=== PATIENT | female | born 1965 | race Caucasian/White ===

== ENCOUNTER → 2017-04-05 | Outpatient (CLI) | payer BC ==
--- NOTE | 2017-04-05 15:54 | XR ---
EXAMINATION TYPE: XR shoulder complete RT DATE OF EXAM: 04/05/2017 COMPARISON: NONE HISTORY: Pain TECHNIQUE: Two views are submitted. FINDINGS: The osseous structures are intact. There is no acute fracture or dislocation. Arthropathy of the AC joint. IMPRESSION: 1. AC joint arthropathy.
--- NOTE | 2017-04-05 15:55 | XR ---
EXAMINATION TYPE: XR hand limited RT DATE OF EXAM: 04/05/2017 COMPARISON: NONE HISTORY: Pain and swelling TECHNIQUE: Three views are submitted. FINDINGS: The osseous structures are intact. Narrowing of the DIP joints of all digits. No erosive changes. 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 There is no acute fracture or disloca tion. IMPRESSION: 1. No definite acute fracture or dislocation if symptoms persist, follow-up study in 7 to 10 days wo uld be suggested. 2. Arthropathy of the DIP joints with no erosive changes.
== END | disposition home or self-care (01) ==
LOC: RADXRMAIN 15:32
PROVIDERS: ATTEND Internal Medicine
DX: M12.841 Other specific arthropathies, not elsewhere classified, right hand (principal); M12.811 Other specific arthropathies, not elsewhere classified, right shoulder

== ENCOUNTER 2023-06-25 05:49 | Day surgery (SDC) | payer MEDICARE ==
[2023-06-25] MEDS ORDERED: SODIUM CHLORIDE 0.9% 1,000 ML in EMPTY BAG 1 BAG IV SCH ×2 (06:00→09:00)
[2023-06-25] MEDS ORDERED: NITROGLYCERIN SL TABS 0.4 MG TAB SUBLINGUAL PRN ×2 (06:00→08:58)
[2023-06-25] MEDS ORDERED: ALPRAZolam 0.25 MG TAB PO PRN (06:00)
[2023-06-25] MEDS ORDERED: ALPRAZolam 0.5 MG TAB PO PRN (06:00)
[2023-06-25] MEDS ORDERED: HEPARIN SODIUM,PORCINE (1 ML) 2,500 UNIT in SODIUM CHLORIDE 0.9% 250 ML IRRIGATION PRN (06:00)
[2023-06-25] MEDS ORDERED: HEPARIN SODIUM,PORCINE 10,000 UNIT in SODIUM CHLORIDE 0.9% 1,000 ML IRRIGATION PRN (06:00)
[2023-06-25] MEDS ORDERED: ASPIRIN 325 MG TAB PO STA (06:00)
[2023-06-25 06:46] VITALS: RESP 18; TEMP 98.3
[2023-06-25] MEDS ORDERED: VERAPAMIL 2.5 MG/ML 2 ML AMP ONE ×3 (07:13→07:53)
[2023-06-25] MEDS ORDERED: fentaNYL (PF) 50 MCG/ML 2 ML AMP ONE (07:26)
[2023-06-25] MEDS ORDERED: HEPARIN SODIUM 1,000 UN/ML (10ML VL) ONE (07:28)
[2023-06-25] MEDS ORDERED: LIDOCAINE 1% INJ 10MG/ML (5 ML VIAL-PF) SQ ONE (07:31)
[2023-06-25] MEDS ORDERED: fentaNYL (PF) 50 MCG/ML 2 ML AMP IVP ONE ×2 (07:31→07:42)
[2023-06-25] MEDS ORDERED: VERAPAMIL SYRINGE (5 MG/10 ML) INTRAARTER ONE ×3 (07:34→08:04)
[2023-06-25] MEDS ORDERED: MIDAZOLAM 2 MG/2 ML VIAL IVP ONE ×3 (07:35→08:06)
[2023-06-25] MEDS ORDERED: HEPARIN SODIUM 1,000 UN/ML (10ML VL) IVP ONE ×2 (07:48→08:06)
[2023-06-25] MEDS ORDERED: LIDOCAINE 1% INJ 10MG/ML (20 ML MDV) ONE (08:00)
[2023-06-25] MEDS ORDERED: LIDOCAINE 1% INJ 10MG/ML (20 ML MDV) SQ ONE (08:04)
[2023-06-25] MEDS ORDERED: CLOPIDOGREL 75 MG TAB ONE (08:08)
[2023-06-25] MEDS ORDERED: IOPAMIDOL-370 100ML BTL INJ ONE (08:15)
[2023-06-25] MEDS ORDERED: HEPARIN SODIUM 1,000 UN/ML (10ML VL) IV ONE (08:20)
[2023-06-25] MEDS ORDERED: MAG HYDROX/AL HYDROX/SIMETH 30 ML CUP PO PRN (08:58)
[2023-06-25] MEDS ORDERED: ZOLPIDEM 5 MG TAB PO PRN (08:58)
[2023-06-25] MEDS ORDERED: ATROPINE SULFATE 0.1 MG/ML 10ML SYRINGE IV PRN (08:58)
[2023-06-25] MEDS ORDERED: RX INFO: IV CONTRAST WAS GIVEN 1 EACH MISC MISCELLANE PRN (08:58)
[2023-06-25] MEDS ORDERED: NON FORMULARY DRUG (Gabapentin [Gabapentin] 600 MG Tablet) PO SCH (09:00)
[2023-06-25] MEDS ORDERED: amLODIPine 10 MG TAB PO SCH (09:00)
[2023-06-25] MEDS ORDERED: TOPIRAMATE 25 MG TAB PO SCH (09:00)
[2023-06-25] MEDS ORDERED: TRAMADOL HCL 300 MG PO SCH (09:00)
[2023-06-25] MEDS ORDERED: SERTRALINE 50 MG TAB PO SCH (09:00)
[2023-06-25] MEDS ORDERED: BACLOFEN 10 MG TAB PO SCH (09:00)
[2023-06-25] MEDS ORDERED: POTASSIUM CHLORIDE 10 MEQ PO SCH (09:00)
[2023-06-25] MEDS ORDERED: NON FORMULARY DRUG (Buspirone Hcl [Buspirone Hcl] 15 MG Tablet) PO SCH (09:00)
[2023-06-25] MEDS ORDERED: LOSARTAN-HCTZ 50-12.5 MG 1 EACH TAB PO SCH (09:00)
--- NOTE | 2023-06-25 09:10 | P.CARDCATH ---
Date of Procedure: 06/25/23 Description of Procedure: Cardiac Catheterization: The patient is a 58-year-old female with known history of carotid disease, hypertension, hyperlipidemia and chronic tobacco use who has been complaining of dyspnea on exertion she had an abnormal MPI. Recommendations were made regarding cardiac catheterization, the risks and the complications were discussed with the patient who is in full understanding and agreement. Procedure Description: Patient was brought to manufacturing laborer in fasting semi-sedated state after receiving Fentanyl and Benadryl achieiving moderate conscious sedated state. Using Xylocaine Anesthesia and modified Seldinger technique, a 6-[place] sheath was introduced in the right radial artery . Subsequently, selective coronary angiography was performed using a 5-[place] Thang catheter, attempt to advance a 5-[place] 3.5 bent Tatyana catheter was unsuccessful because of severe spasm and the radial artery. Multiple views of the coronary artery including hemiaxial views were obtained. The 6-[place] pigtail catheter was used to cross the aortic valve and LVEDP was calculated. PCI: Because of the severe spasm in the right radial artery and using Xylocaine anesthesia in the modified Seldinger technique and using micropuncture catheter a 6-[place] sheath was introduced in the right femoral artery. Subsequently a 6- [place] FR 4 guiding catheter was introduced and after cannulating the right coronary ostium a 0.014 BMW J-wire was positioned distally. Subsequently a 2.5 x 12 mm NC Treck was advanced and 2 inflations at 10 jose a were done. After removing the balloon a [employer] eye IVUS was advanced and imaging was performed, subsequently a 3.25 x 15 mm Xience anette point was advanced with the help of a 6-[place] guide liner. It was dilated at 16 jose a, after removing the balloon repeat IVUS was performed. Subsequently a 3.5 x 8 mm NC Treck was advanced and 2 inflations at 10 jose a were done. Subsequently the wire was withdrawn and images were obtained and revealed stable successful stenting. Following that, catheter and sheath were removed. Hemostasis was obtained with d eployment of vascular band . The sheath in the right femoral artery was removed and hemostasis was obtained with deployment of an Angio-Seal. There was no immediate complication. Patient was returned to room in stable condition. Of note, the patient received a total of 10,000 units of intravenous heparin as well as intra-arterial verapamil. She was continued on clopidogrel. Her ACT was followed. She had no chest discomfort or EKG changes. Findings: Fluoroscopy: There is severe calcifications of the coronary arteries Left main: This is a large size vessel, bifurcating into left circumflex and left anterior descending artery, left main has no obstructive disease LAD: This is a large size vessel, reaching to the apex, the mid left anterior descending artery has a 40-50% plaque, there is a vessel has no high-grade stenosis Left circumflex: This is a nondominant vessel large in caliber giving rise to a large obtuse marginal branch that has no obstructive disease RCA: This is a large dominant vessel bifurcating distally into PDA and PLV, calcified, the proximal right coronary artery has a 95% stenosis him at the mid has 20-30% plaque there is of the vessel has no high-grade stenosis Left Ventriculogram: Not performed Hemodynamics: There was no gradient across the aortic valve , LVEDP was 6-12 mmHg Conclusion: 1. Calcified coronary arteries 2. Severe stenosis in the proximal RCA 3. Mild to moderate disease in the LAD 4. Successful stenting of the proximal RCA with reduction of stenosis from 95% to 0% with intravascular ultrasound imaging Recommendations: The patient will continue on aspirin and clopidogrel for 6 months without any interruption in addition to aggressive coronary risks modification, attempting to maintain LDL below 70 mg/dL. The findings and the recommendations were discussed with the patient and the family and they were in full understanding and agreement. Duration of sedation is 85 minutes.
[2023-06-25 12:45] VITALS: BP 114/65; PULSE 66
[2023-06-25] MEDS ORDERED: NON FORMULARY DRUG (Dextroamphetamine/Amphetamine [Adderall] 10 MG Tablet) PO SCH (17:30)
[2023-06-25] MEDS ORDERED: traZODone HCL 50 MG TAB PO SCH (21:00)
[2023-06-25] MEDS ORDERED: NON FORMULARY DRUG (Melatonin [Melatonin Er] 10 MG Tablet) PO SCH (21:00)
[2023-06-25] MEDS ORDERED: ATORVASTATIN 80 MG TAB PO SCH (21:00)
[2023-06-25] MEDS ORDERED: AMITRIPTYLINE HCL 10 MG TAB PO SCH (21:00)
[2023-06-26] MEDS ORDERED: ASPIRIN 81 MG PO SCH (09:00)
[2023-06-26] MEDS ORDERED: CLOPIDOGREL 75 MG TAB PO SCH (09:00)
== END 2023-06-25 13:24 | disposition home or self-care (01) ==
LOC: CATHCVL 05:49
PROVIDERS: ATTEND Internal Medicine Interventional Cardiology
DX: I25.10 Atherosclerotic heart disease of native coronary artery without angina pectoris (principal); I10 Essential (primary) hypertension; E78.5 Hyperlipidemia, unspecified; Z86.73 Personal history of transient ischemic attack (TIA), and cerebral infarction without residual deficits; Z79.02 Long term (current) use of antithrombotics/antiplatelets; Z79.899 Other long term (current) drug therapy; Z87.891 Personal history of nicotine dependence; Z85.79 Personal history of other malignant neoplasms of lymphoid, hematopoietic and related tissues
CPT/HCPCS: 92978; 93458; 84132; 99152; 99153 ×5; C1769 ×4; C9600; C1760; C1887 ×2; C1894; C1753; C1874; C1725 ×2; J2250; J2001 ×2; J3010; J1644; Q9967